=== PATIENT | female | born 1965 | race Caucasian/White ===

== ENCOUNTER 2019-03-14 19:23 | Emergency (ER) | payer MEDICARE, OTHER ==
--- NOTE | 2019-03-14 20:29 | EDM.PDOC ---
ED HPI GENERAL MEDICAL PROBLEM - General Chief Complaint: Chest Pain Stated Complaint: CHEST PRESSURE/SOB Time Seen by Provider: 03/14/19 20:08 Source of Information: Reports: Patient History Limitations: Reports: No Limitations - History of Present Illness INITIAL COMMENTS - FREE TEXT/NARRATIVE: Mrs. Alves is a very pleasant 53-year-old woman who states that she woke early morning with pain felt to her right anterior chest. The pain was sharp and burning in character - a pain, not a discomfort. It waxed and waned. She felt better if she was upright, worse if she was supine. The pain lasted about 20 minutes, but since then has come and gone. The patient has not identified any modifiers that would cause it to present or cause it to relieve, such as position, breathing, moving, or eating. The patient reports having dyspnea, including now, here in the ED. She states that she feels somewhat clammy at night, although it is not associated with her chest pain. She denies associated nausea. No associated sense of impending doom. No prior similar symptoms. The patient also relates that she has had lower neck pain that radiates to her bilateral upper shoulders on and off a few times per day over the past couple of days. Similarly, that pain seems to come and go without identifiable modifiers. The patient reports having a subjective fever 2 days ago. She states that her shortness of breath sometimes makes her feel like coughing. No recent abdominal pain, vomiting, constipation, diarrhea, bloody bowel movements, or black bowel movements. No recent urinary symptoms. No recent weight gain or weight loss. The patient states that she took aspirin and ibuprofen early this morning, then some additional aspirin this afternoon. The patient's PCP is Mary Alice West NP. Her Neurologist is Dr. Kevin Leggett. Chest Pain Score (Numeric/FACES): 3 - Related Data Allergies Allergy/AdvReac Type Severity Reaction Status Date / Time latex Allergy Hives Uncoded 03/14/19 19:31 Home Meds: Home Meds Levothyroxine [Synthroid] 88 mcg PO DAILY 03/14/19 [History] Orphenadrine [Norflex] 1 tab PO Q12H PRN #14 tab.er 03/14/19 [Rx] lamoTRIgine [Lamictal] 150 mg PO DAILY 03/14/19 [History] lamoTRIgine [Lamictal] 300 mg PO BEDTIME 03/14/19 [History] Past Medical History Neurological History: Reports: Seizure Endocrine/Metabolic History: Reports: Hypothyroidism - Past Surgical History HEENT Surgical History: Reports: Oral Surgery (wisdom teeth extraction) Female Surgical History: Reports: Section (x 4), Tubal Ligation Social & Family History - Tobacco Use Smoking Status *Q: Former Smoker Years of Tobacco use: 8 Packs/Tins Daily: 1.5 Month/Year Tobacco Last Used: Quit 1991 - Alcohol Use Alcohol Use History: Yes Alcohol Use Frequency: Socially - Recreational Drug Use Recreational Drug Use: No - Living Situation & Occupation Living situation: Reports: (), with Family (Daughter) 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 ED EXAM, GENERAL - Physical Exam Exam: See Below Exam Limited By: No Limitations General Appearance: Alert, No Apparent Distress, Thin Eye Exam: Bilateral Eye: EOMI, Normal Inspection Ears: Normal External Exam, Normal Canal, Hearing Grossly Normal, Normal TMs Nose: Normal Inspection Throat/Mouth: Normal Inspection, Normal Lips, Normal Voice, No Airway Compromise Head: Atraumatic, Normocephalic Neck: Normal Inspection, Supple, Full Range of Motion, Other (Mild discomfort to palpation of the patient's bilateral upper pedis, but the patient states that the discomfort is different than the discomfort that she was experiencing earlier) Respiratory/Chest: No Respiratory Distress, Lungs Clear, Normal Breath Sounds, No Accessory Muscle Use, Other (Replacement tenderness to palpation of the right chest - likely the intercostal muscles) Cardiovascular: Normal Peripheral Pulses, Regular Rate, Rhythm, No Edema, No Gallop, No JVD, No Murmur, No Rub Peripheral Pulses: 4+: Radial (L), Radial (R) GI/Abdominal: Normal Bowel Sounds, Soft, Non-Tender, No Organomegaly, No Distention, No Abnormal Bruit, No Mass (Female) Exam: Deferred Rectal (Female) Exam: Deferred Back Exam: Normal Inspection, Full Range of Motion, NT Extremities: Normal Inspection, Normal Range of Motion, No Pedal Edema, Normal Capillary Refill Neurological: Alert, Oriented, Normal Cognition, No Motor/Sensory Deficits Psychiatric: Normal Affect Skin Exam: Warm, Dry, Intact, Normal Color, No Rash EKG INTERPRETATION EKG Date: 03/14/19 Time: 19:39 Rhythm: Other (Sinus tachycardia) Rate (Beats/Min): 107 [place]: Normal P-Wave: Enlarged (LAE) QRS: Normal ST-T: Normal QT: Normal Comparison: NA - No Prior EKG Course - Vital Signs Last Recorded V/S: Last Vital Signs Temp 37.8 C 03/14/19 19:33 Pulse 103 H 03/14/19 19:33 Resp 12 03/14/19 19:33 BP 124/73 03/14/19 22:22 Pulse Ox 98 03/14/19 19:33 - Orders/Labs/Meds Labs: Laboratory Tests 03/14/19 03/14/19 03/14/19 Range/Units 19:46 19:46 19:46 WBC 8.87 (3.98-10.04) K/mm3 RBC 4.09 (3.98-5.22) M/mm3 Hgb 12.6 (11.2-15.7) gm/dl Hct 37.9 (34.1-44.9) % MCV 92.7 (79.4-94.8) fl MCH 30.8 (25.6-32.2) pg MCHC 33.2 (32.2-35.5) g/dl RDW Std Deviation 41.8 (36.4-46.3) fL Plt Count 302 (182-369) K/mm3 MPV 9.5 (9.4-12.3) fl Neut % (Auto) 69.6 (34.0-71.1) % Lymph % (Auto) 17.8 L (19.3-51.7) % Montgomery % (Auto) 10.3 (4.7-12.5) % Eos % (Auto) 1.8 (0.7-5.8) Baso % (Auto) 0.3 (0.1-1.2) % Neut # (Auto) 6.17 H (1.56-6.13) K/mm3 Lymph # (Auto) 1.58 (1.18-3.74) K/mm3 Montgomery # (Auto) 0.91 H (0.24-0.36) K/mm3 Eos # (Auto) 0.16 (0.04-0.36) K/mm3 Baso # (Auto) 0.03 (0.01-0.08) K/mm3 D-Dimer, Quantitative 0.29 (0.19-0.50) mg/L Sodium 139 (136-145) mEq/L Potassium 3.9 (3.5-5.1) mEq/L Chloride 104 (98-107) mEq/L Carbon Dioxide 28 (21-32) mEq/L Anion Gap 10.9 (5-15) BUN 17 (7-18) mg/dL Creatinine 0.7 (0.55-1.02) mg/dL Est Cr Clr Drug Dosing 70.94 mL/min Estimated GFR (MDRD) > 60 (>60) mL/min BUN/Creatinine Ratio 24.3 H (14-18) Glucose 109 H (74-106) mg/dL Calcium 8.8 (8.5-10.1) mg/dL Total Bilirubin 0.3 (0.2-1.0) mg/dL AST 16 (15-37) U/L ALT 17 (14-59) U/L Alkaline Phosphatase 76 (46-116) U/L Troponin I < 0.017 (0.00-0.056) ng/mL Total Protein 7.7 (6.4-8.2) g/dl Albumin 3.7 (3.4-5.0) g/dl Globulin 4.0 gm/dL Albumin/Globulin Ratio 0.9 L (1-2) Meds: Medications Discontinued Medications Generic Name Dose Route Start Last Admin Trade Name Freq PRN Reason Stop Dose Admin Orphenadrine Citrate 100 mg 03/14/19 22:03 03/14/19 22:19 Norflex PO 03/14/19 22:04 100 mg ONETIME STA Administration - Re-Assessments/Exams Free Text/Narrative Re-Assessment/Exam: 03/14/19 20:27 Based on her history and physical examination, I suspect that the patient's neck , upper shoulder, and right-sided chest pain are musculoskeletal in etiology, however, I have ordered a workup, including blood work, a chest x-ray, and an ECG, to rule out an atypical presentation of something more serious. 03/14/19 21:46 2-view chest radiograph reviewed. The cardiac silhouette is within normal limits. No pulmonary vascular congestion. No pleural effusions. No focal infiltrate. No pneumothorax. There is hyperinflation and bilateral diaphragmatic flattening, consistent with COPD. There is lumbar scoliosis and loss of thoracic kyphosis. Formal read per the Radiologist pending. The patient's CBC is unremarkable. Her CMP is remarkable for a blood glucose slightly elevated at 109, and is otherwise unremarkable. Her troponin is undetectably low. Her D-Dimer is within normal limits at 0.29. 03/14/19 22:03 Test results discussed with the patient and her mother. As above, I suspect that the patient's symptoms are musculoskeletal in etiology, therefore I will start her on Norflex, and prescribe a 7-day course. In addition, I would like the patient to take [id number] ibuprofen. If she is not feeling significant better after a few days, I would like her to follow-up with her PCP to discuss the option of an MRI of her neck to evaluate for cervical radiculopathy. Additionally, if the patient develops any different chest pain symptoms, I would like her to return to the ED for reevaluation. Departure - Departure Time of Disposition: 22:05 Disposition: Home, Self-Care 01 Condition: Good Clinical Impression: Musculoskeletal chest pain - Discharge Information *PRESCRIPTION DRUG MONITORING PROGRAM REVIEWED*: Not Applicable *COPY OF PRESCRIPTION DRUG MONITORING REPORT IN PATIENT NEW: Not Applicable Prescriptions: Orphenadrine [Norflex] 1 tab PO Q12H PRN #14 tab.er PRN Reason: Muscle Spasm Instructions: Musculoskeletal Pain Referrals: Mary Alice West NP [Primary Care Provider] - Kevin Leggett MD [Ordering Only Provider] - Forms: ED Department Discharge Additional Instructions: You were seen in the emergency room for right-sided chest pain and discomfort as well as lower neck and upper shoulder pain. Workup in the ER included blood work, a chest x-ray, and an ECG. Your entire workup was unremarkable. You have not had a heart attack. You do not have a blood clot in your lungs. You do not have pneumonia or a collapsed lung. Based on your history, physical exam, and ER tests, the cause of your symptoms is most likely due to muscle spasms. You have been started on the muscle relaxant Norflex. A prescription for Norflex has been sent to the [facility], located just south and across the [address] from [facility]. Take one tablet of Norflex every 12 hours, starting tomorrow morning, 03/15/2019, as prescribed. In addition to Norflex, we recommend that you take [id number] ibuprofen, 2 -3 tablets (400-600 mg) every 8 hours, with food, as needed for discomfort. If you are not feeling substantially better after 3 days, we recommend that you follow-up with your PCP, Mary Alice West NP, for further evaluation that might include an MRI of your neck to evaluate for cervical radiculopathy. If any other problems, including the development of different chest pain symptoms, please do not hesitate to return to the ER for reevaluation.
[2019-03-14] MEDS ORDERED: Orphenadrine 100 MG Tab.ER PO STA (22:03)
--- NOTE | 2019-03-15 08:20 | CR ---
Chest: 2 views of the chest were obtained. Comparison: No prior chest x-rays available. Parenchymal density is seen on the lateral view anteriorly within the mid lung. Uncertain if this is due to mass or represents other parenchymal density. This finding measures about 4.6 cm. Diaphragms are flattened compatible with emphysematous change. Scoliosis is noted within the spine. Heart size and mediastinum are normal. Impression: 1. Parenchymal density on the lateral view within the anterior mid lung. Chest CT is recommended to further evaluate as mass cannot be excluded at this time. 2. Emphysematous change. 3. Other incidental findings. Diagnostic code #9
== END 2019-03-14 22:23 | disposition home or self-care (01) ==
LOC: JD.ED 19:23
DX: R07.89 Other chest pain (principal); Z91.040 Latex allergy status
CPT/HCPCS: 36415; 71046; 80053; 84484; 85025; 85379; 93005; 99285; A9270

== ENCOUNTER 2019-07-20 22:27 | Emergency (ER) | payer MEDICARE, SELFPAY ==
[2019-07-20] MEDS ORDERED: Diphtheria,Pertussis(Acell),Tetanus Vaccine 0.5 ML Syringe IM ONE (23:11)
--- NOTE | 2019-07-20 23:19 | EDM.PDOC ---
ED HPI GENERAL MEDICAL PROBLEM - General Chief Complaint: General Stated Complaint: WANTS TO BE TESTED TETANUS INFECTION NEEDS SHOT Time Seen by Provider: 07/20/19 23:06 Source of Information: Reports: Patient, RN Notes Reviewed History Limitations: Reports: No Limitations - History of Present Illness INITIAL COMMENTS - FREE TEXT/NARRATIVE: Patient is a 54-year-old female presents to the ED for evaluation of a couple puncture wounds on the bottom of her foot. She states that yesterday she stepped on 2 nails, these did valdez through her shoe and into her foot. Patient states she cleaned the area right away, and has been soaking her foot in Epsom salt and using triple antibiotic ointment to the area. She is not having any pain in this area. Patient states that she was originally okay just cleaning this, but then realized she had not had her tetanus updated in around 30 years so she comes to the ER to get her Tdap updated. Patient can still wiggle her toes. - Related Data Allergies Allergy/AdvReac Type Severity Reaction Status Date / Time latex Allergy Hives Uncoded 07/20/19 23:07 Home Meds: Home Meds Levothyroxine [Synthroid] 88 mcg PO DAILY 03/14/19 [History] Orphenadrine [Norflex] 1 tab PO Q12H PRN #14 tab.er 03/14/19 [Rx] lamoTRIgine [Lamictal] 150 mg PO DAILY 03/14/19 [History] lamoTRIgine [Lamictal] 300 mg PO BEDTIME 03/14/19 [History] Past Medical History Neurological History: Reports: Seizure Endocrine/Metabolic History: Reports: Hypothyroidism - Past Surgical History HEENT Surgical History: Reports: Oral Surgery (wisdom teeth extraction) Female Surgical History: Reports: Section (x 4), Tubal Ligation Social & Family History - Living Situation & Occupation Living situation: Reports: (), with Family (Daughter) 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 Musculoskeletal: Reports: Foot Pain (where she stepped on nails, she notes this as tenderness) Skin: Reports: Wound (2 small puncture wounds to the plantar surface of the right foot, this is on the ball of the foot, laterally around the fourth and fifth digit distribution) Neurological: Denies: Numbness, Tingling ED EXAM, GENERAL - Physical Exam Exam: See Below Exam Limited By: No Limitations General Appearance: Alert, WD/WN, No Apparent Distress Respiratory/Chest: No Respiratory Distress, Lungs Clear, Chest Non-Tender Cardiovascular: Normal Peripheral Pulses, Regular Rate, Rhythm, No Murmur Peripheral Pulses: 3+: Radial (L), Radial (R), Dorsalis Pedis (L), Dorsalis Pedis (R) Extremities: Normal Inspection, Normal Range of Motion, Normal Capillary Refill Neurological: Alert, Oriented, Normal Cognition, No Motor/Sensory Deficits Psychiatric: Normal Affect, Normal Mood Skin Exam: Warm, Dry, Intact, Normal Color, No Rash, Wound/Incision (2 small puncture wounds to the plantar surface of the right foot, this is on the ball of the foot, laterally around the fourth and fifth digit distribution) Course - Vital Signs Last Recorded V/S: Last Vital Signs Temp 98.8 F 07/20/19 23:03 Pulse 84 07/20/19 23:03 Resp 20 07/20/19 23:03 BP 143/77 H 07/20/19 23:03 Pulse Ox 100 07/20/19 23:03 - Orders/Labs/Meds Orders: Active Orders 24 hr Category Date Time Status Vaccines to be Administered [RC] PER UNIT ROUTINE Care 07/20/19 23:11 Ordered Meds: Medications Discontinued Medications Generic Name Dose Route Start Last Admin Trade Name Freq PRN Reason Stop Dose Admin Diphtheria/Tetanus/Acell Pertussis 0.5 ml 07/20/19 23:11 Adacel IM 07/20/19 23:12 .ONCE ONE - Re-Assessments/Exams Free Text/Narrative Re-Assessment/Exam: 07/20/19 23:17 Patient presents to the ED for evaluation of a couple puncture wounds on the bottom of her foot. These are clean in nature, and do not appear to have any redness swelling or infective-looking processes going around the site. She is keeping these thoroughly cleaned, we will update her tetanus vaccine at today's visit and discharge her home with conservative recommendations. Departure - Departure Time of Disposition: 23:17 Disposition: Home, Self-Care 01 Condition: Fair Clinical Impression: Puncture wound of foot Qualifiers: Encounter type: initial encounter Laterality: right Qualified Code(s): S91.331A - Puncture wound without foreign body, right foot, initial encounter - Discharge Information *PRESCRIPTION DRUG MONITORING PROGRAM REVIEWED*: No *COPY OF PRESCRIPTION DRUG MONITORING REPORT IN PATIENT NEW: No Instructions: Puncture Wound, [id number] Referrals: Mary Alice West, [facility] MANAGER [Primary Care Provider] - Additional Instructions: You have been evaluated in the ED for your puncture wounds. Your tetanus vaccination was updated at today's visit, you should not need another booster for another 10 years. Please keep this area clean and dry, you may cleanse with regular soap and water. Watch out for signs of infection like increased redness, swelling, pain at the laceration site, or if you should develop any fevers or chills. Please return to ED if your symptoms change or worsen. Sepsis Event Note - Evaluation Sepsis Screening Result: No Definite Risk - Focused Exam Vital Signs: Vital Signs Temp Pulse Resp BP Pulse Ox 07/20/19 23:03 98.8 F 84 20 143/77 H 100 Date Exam was Performed: 07/20/19 Time Exam was Performed: 23:12 - My Orders Last 24 Hours: My Active Orders 07/20/19 23:11 Vaccines to be Administered [RC] PER UNIT ROUTINE - Assessment/Plan Last 24 Hours: My Active Orders 07/20/19 23:11 Vaccines to be Administered [RC] PER UNIT ROUTINE
== END 2019-07-20 23:42 | disposition home or self-care (01) ==
LOC: JD.ED 22:27
DX: S91.331A Puncture wound without foreign body, right foot, initial encounter (principal); Z23 Encounter for immunization; E03.9 Hypothyroidism, unspecified; Z79.899 Other long term (current) drug therapy; Z91.040 Latex allergy status; W22.8XXA Striking against or struck by other objects, initial encounter
CPT/HCPCS: 90471; 90715; 99282; 99283